=== PATIENT | female | born 1945 | race Two or more races ===

== ENCOUNTER 2018-04-29 07:49 | Day surgery (SDC) | payer OTHER ==
[~2018-04-29] VITALS: Ht 154.9 cm; Wt 77.7 kg
[~2018-04-29 07:49] MED LIST: AMIT25 PO; ASPI81EC PO; CIPR500 PO; CLON.5 PO; Cipro500 MG PO; DICL25ER; DICL75ER PO; ETOD200 PO; GABA100 PO; GEMF600 PO; GLIP10; Glucotrol5 MG PO; INS70/30I SC; INSLIS75I SC; INSULANPEN; LOSA25 PO; MECL25 PO; METF500; METF500 PO; METF500C PO; METO25 PO; METR500 PO; NAPR550 PO; OMEP20ER; OMEP20ER PO; PIOG45; PRAV20 PO; PROACE100 PO; PROM25 PO; PROM25S PR; RXHYDACE PO; RXNAPNA550 PO; RXPROM25S PR; SAXA2.5T; SIME80CH PO; TOUJEO SOL300 UNIT/1
[2018-04-29] MEDS ORDERED: CHOL10002 PO (08:29)
[2018-04-29] MEDS ORDERED: FISH OIL + D31 EACH PO (08:30)
== END 2018-04-29 10:00 | disposition home or self-care (01) ==
LOC: ORSCSDS 07:49
PROVIDERS: Internal Medicine Gastroenterology
PROC: 0DB68ZX Excision of Stomach, Via Natural or Artificial Opening Endoscopic, Diagnostic (ICD-10-PCS; principal; 2018-04-29 09:15)
PROC: 0DB58ZX Excision of Esophagus, Via Natural or Artificial Opening Endoscopic, Diagnostic (ICD-10-PCS; principal; 2018-04-29 09:15)
DX: K21.9 Gastro-esophageal reflux disease without esophagitis (principal); K31.89 Other diseases of stomach and duodenum; M79.7 Fibromyalgia; E11.9 Type 2 diabetes mellitus without complications; E78.00 Pure hypercholesterolemia, unspecified; I10 Essential (primary) hypertension; G47.33 Obstructive sleep apnea (adult) (pediatric); Z79.4 Long term (current) use of insulin; Z79.899 Other long term (current) drug therapy
CPT/HCPCS: 82947; 88305; 88341; 88342

== ENCOUNTER 2019-12-06 14:54 | Observation (INO) | payer OTHER ==
[~2019-12-06] VITALS: Ht 154.9 cm; Wt 78.0 kg
[~2019-12-06 14:54] MED LIST changes: +CHOL10002 PO; -DICL25ER; +DICL25ER SC; +FISH OIL + D31 EACH PO; -TOUJEO SOL300 UNIT/1; +TOUJEO SOL300 UNIT/1 SC
[2019-12-06 15:47] LABS: BASOPHILS ABSOLUTE AUTO 0.07 K/mm3 (0.00-0.23); BASOPHILS PERCENT AUTO 1 % (0-2); EOSINOPHILS ABSOLUTE AUTO 0.27 K/mm3 (0.00-0.68); EOSINOPHILS PERCENT AUTO 2 % (0-6); Hematocrit 34.5 % (33.0-51.0); Hemoglobin 10.8 g/dL (11.5-16.0); IMMATURE GRAN ABSOLUTE AUTO 0.06 K/mm3 (0.00-0.10); IMMATURE GRAN PERCENT AUTO 1 % (0-1); LYMPHOCYTES ABSOLUTE AUTO 2.95 K/mm3 (0.84-5.20); LYMPHOCYTES PERCENT AUTO 27 % (21-46); MONOCYTES ABSOLUTE AUTO 0.59 K/mm3 (0.16-1.47); MONOCYTES PERCENT AUTO 5 % (4-13); Mean Corpuscular HGB 24.9 pg (26.0-34.0); Mean Corpuscular HGB Conc 31.3 g/dL (31.5-36.5); Mean Corpuscular Volume 80 fL (80-100); Mean Platelet Volume 9.4 fL (9.1-12.4); NEUTROPHILS PERCENT AUTO 65 % (41-73); Platelet Count 351 K/mm3 (150-400); RDW Coefficient Variation 15.2 % (11.7-14.2); RDW Standard Deviation 44.1 fL (35.1-46.3); Red Blood Cell Count 4.33 M/mm3 (3.80-5.20); White Blood Cell Count 11.14 K/mm3 (4.00-11.30)
[2019-12-06 16:06] LABS: Alanine Aminotransfer (ALT/SGP 27 U/L (12-78); Albumin, Blood 3.4 g/dL (3.4-5.0); Albumin/Globulin Ratio 0.8 (0.8-1.8); Alk Phos 64 U/L (50-136); Anion Gap 7 mmol/L (6-16); Aspartate Aminotrans (AST/SGOT 20 U/L (12-37); Bilirubin, Total 0.2 mg/dL (0.1-1.0); Blood Urea Nitrogen 17 mg/dL (8-24); Bun/Creatinine Ratio 29.2 (12.0-20.0); CO2, Blood 26 mmol/L (21-32); Calcium, Blood 8.8 mg/dL (8.5-10.1); Chloride, Blood 106 mmol/L (98-108); Creatinine, Blood 0.58 mg/dL (0.40-1.00); Globulin, Blood 4.5 g/dL (2.2-4.0); Glomerular Filtration Rate >60 (60-); Glucose, Blood 146 mg/dL (70-99); Potassium, Blood 4.2 mmol/L (3.5-5.5); Sodium, Blood 139 mmol/L (136-145); Total Protein, Blood 7.9 g/dL (6.4-8.2)
[2019-12-06] MEDS ORDERED: OMEP20ER PO (19:48)
[2019-12-06] MEDS ORDERED: METFORMIN HCL500 M2 PO (19:48)
[2019-12-06] MEDS ORDERED: Klonopin0.5 MG PO (19:48)
[2019-12-06] MEDS ORDERED: LOSARTAN POTASS25 M2 PO (19:49)
[2019-12-06 20:44] LABS: Troponin I <0.015 ng/mL (0.000-0.040)
[2019-12-06] MEDS ORDERED: IBUP200 PO (22:18)
[2019-12-06] MEDS ORDERED: ACET325 PO (22:19)
[2019-12-06] MEDS ORDERED: [UNRECOGNIZED DRUG - REMARK] PO (22:20)
--- NOTE | 2019-12-06 22:21 | NUR ---
74 yr old female admitted to floor from the ed with dx of headache. ED RN reported pt having had headache and ear pain x 3 wks but recently it has increased so she came to the ED. Presents self as A/O x 4. Smiling, Oriented to call light use, agrees to use call light prior to getting out of bed. Neuro check done. PAULA. Bilat clerk of works and plantar/dorsi flexion equal. No noted facial droop. Call light in reach.
--- NOTE | 2019-12-07 02:25 | NUR ---
PT RESTING QUIETLY WITH NO NOTED INTERRUPTIONS THIS SHIFT SINCE HS. CONTINUING NEURO CHECKS, NO NOTED DEVIATION OF THIS WRITING. CALL LIGHT IN REACH.
--- NOTE | 2019-12-07 10:38 | NUR ---
NEURO ASSESSMENT WNL. PT DENIES DIZZINESS, VISION CHANGES. PT REPORTS HEADACHE, WILL MAKE DR. OTOOLE AWARE AND MED PER EMAR. DR. OTOOLE IN ROOM AT ABOUT 0930.
[2019-12-07] MEDS ORDERED: MELO7.5 PO (14:08)
[2019-12-07] MEDS ORDERED: PAMELOR PO (14:09)
--- NOTE | 2019-12-07 17:10 | NUR ---
DISCHARGE: PACKET PRINTED AND PT EDUCATED. SCRIPTS FAXED TO [facility]. PT LEFT UNIT VIA WHEELCHAIR AT 1711 WITH COMMISSARY PRODUCTION SUPERVISOR
== END 2019-12-07 17:28 | disposition home or self-care (01) ==
LOC: ER 14:54 → MEDS 14:55
PROVIDERS: Physician Assistant; ADMIT Internal Medicine
DX: G58.8 Other specified mononeuropathies (principal); G43.909 Migraine, unspecified, not intractable, without status migrainosus; F41.9 Anxiety disorder, unspecified; E11.9 Type 2 diabetes mellitus without complications; M19.90 Unspecified osteoarthritis, unspecified site; M31.6 Other giant cell arteritis; R07.9 Chest pain, unspecified; M79.7 Fibromyalgia; E78.5 Hyperlipidemia, unspecified; F51.04 Psychophysiologic insomnia; I10 Essential (primary) hypertension; K21.9 Gastro-esophageal reflux disease without esophagitis; G47.33 Obstructive sleep apnea (adult) (pediatric); Z79.4 Long term (current) use of insulin; Z79.899 Other long term (current) drug therapy
CPT/HCPCS: 70450; 80053; 82947; 84484; 85025; 85651; 86140; 93005; 93010; 96374; 96375; 99285-25; G0378; J1100; J1200; J1815; J2405; J2765; J7512

== ENCOUNTER 2019-12-09 12:07 | Emergency (ER) | payer OTHER ==
[~2019-12-09] VITALS: Ht 154.9 cm; Wt 78.0 kg
[~2019-12-09 12:07] MED LIST changes: +ACET325 PO; +IBUP200 PO; +Klonopin0.5 MG PO; +LOSARTAN POTASS25 M2 PO; +MELO7.5 PO; +METFORMIN HCL500 M2 PO; +PAMELOR PO; +[UNRECOGNIZED DRUG - REMARK] PO
[2019-12-09 12:47] LABS: BASOPHILS ABSOLUTE AUTO 0.07 K/mm3 (0.00-0.23); BASOPHILS PERCENT AUTO 1 % (0-2); EOSINOPHILS ABSOLUTE AUTO 0.36 K/mm3 (0.00-0.68); EOSINOPHILS PERCENT AUTO 3 % (0-6); Hematocrit 35.7 % (33.0-51.0); Hemoglobin 11.2 g/dL (11.5-16.0); IMMATURE GRAN ABSOLUTE AUTO 0.06 K/mm3 (0.00-0.10); IMMATURE GRAN PERCENT AUTO 1 % (0-1); LYMPHOCYTES ABSOLUTE AUTO 3.81 K/mm3 (0.84-5.20); LYMPHOCYTES PERCENT AUTO 32 % (21-46); MONOCYTES ABSOLUTE AUTO 0.69 K/mm3 (0.16-1.47); MONOCYTES PERCENT AUTO 6 % (4-13); Mean Corpuscular HGB 25.2 pg (26.0-34.0); Mean Corpuscular HGB Conc 31.4 g/dL (31.5-36.5); Mean Corpuscular Volume 80 fL (80-100); Mean Platelet Volume 9.3 fL (9.1-12.4); NEUTROPHILS ABSOLUTE AUTO 6.91 K/mm3 (1.96-9.15); NEUTROPHILS PERCENT AUTO 58 % (41-73); Platelet Count 361 K/mm3 (150-400); RDW Coefficient Variation 15.5 % (11.7-14.2); RDW Standard Deviation 44.8 fL (35.1-46.3); Red Blood Cell Count 4.45 M/mm3 (3.80-5.20)
[2019-12-09 13:15] LABS: Alanine Aminotransfer (ALT/SGP 31 U/L (12-78); Albumin, Blood 3.4 g/dL (3.4-5.0); Albumin/Globulin Ratio 0.8 (0.8-1.8); Alk Phos 63 U/L (50-136); Anion Gap 6 mmol/L (6-16); Aspartate Aminotrans (AST/SGOT 22 U/L (12-37); Bilirubin, Total 0.2 mg/dL (0.1-1.0); Blood Urea Nitrogen 21 mg/dL (8-24); Bun/Creatinine Ratio 31.9 (12.0-20.0); CO2, Blood 29 mmol/L (21-32); Calcium, Blood 9.2 mg/dL (8.5-10.1); Chloride, Blood 103 mmol/L (98-108); Creatinine, Blood 0.66 mg/dL (0.40-1.00); Globulin, Blood 4.1 g/dL (2.2-4.0); Glomerular Filtration Rate >60 (60-); Glucose, Blood 107 mg/dL (70-99); Sodium, Blood 138 mmol/L (136-145); Total Protein, Blood 7.5 g/dL (6.4-8.2); Troponin I <0.015 ng/mL (0.000-0.040)
[2019-12-09] MEDS ORDERED: Augmentin 875-1 EACH PO (15:34)
== END 2019-12-09 15:58 | disposition home or self-care (01) ==
LOC: ER 12:07
PROVIDERS: Physician Assistant
DX: H66.92 Otitis media, unspecified, left ear (principal); H72.92 Unspecified perforation of tympanic membrane, left ear; E11.9 Type 2 diabetes mellitus without complications; Z88.5 Allergy status to narcotic agent; Z88.6 Allergy status to analgesic agent; Z79.4 Long term (current) use of insulin; Z79.899 Other long term (current) drug therapy
CPT/HCPCS: 36415; 71046; 80053; 84484; 85025; 93005; 93010; 96374; 96375; 99284-25; J0780; J1200

== ENCOUNTER 2021-01-19 15:45 | Observation (INO) | payer OTHER ==
[~2021-01-19] VITALS: Ht 152.4 cm; Wt 79.9 kg
[~2021-01-19 15:45] MED LIST changes: +Augmentin 875-1 EACH PO; -Glucotrol5 MG PO; -Klonopin0.5 MG PO; -LOSARTAN POTASS25 M2 PO; -METFORMIN HCL500 M2 PO
[2021-01-19 16:25] LABS: BASOPHILS PERCENT AUTO 1 % (0-2); EOSINOPHILS ABSOLUTE AUTO 0.29 K/mm3 (0.00-0.68); EOSINOPHILS PERCENT AUTO 2 % (0-6); Hematocrit 35.4 % (33.0-51.0); Hemoglobin 10.9 g/dL (11.5-16.0); IMMATURE GRAN ABSOLUTE AUTO 0.11 K/mm3 (0.00-0.10); IMMATURE GRAN PERCENT AUTO 1 % (0-1); LYMPHOCYTES ABSOLUTE AUTO 3.93 K/mm3 (0.84-5.20); LYMPHOCYTES PERCENT AUTO 22 % (21-46); MONOCYTES ABSOLUTE AUTO 0.65 K/mm3 (0.16-1.47); MONOCYTES PERCENT AUTO 4 % (4-13); Mean Corpuscular HGB 24.5 pg (26.0-34.0); Mean Corpuscular HGB Conc 30.8 g/dL (31.5-36.5); Mean Corpuscular Volume 80 fL (80-100); Mean Platelet Volume 9.3 fL (9.1-12.4); NEUTROPHILS ABSOLUTE AUTO 12.86 K/mm3 (1.96-9.15); NEUTROPHILS PERCENT AUTO 72 % (41-73); Platelet Count 330 K/mm3 (150-400); RDW Coefficient Variation 15.8 % (11.7-14.2); RDW Standard Deviation 44.9 fL (35.1-46.3); Red Blood Cell Count 4.45 M/mm3 (3.80-5.20); White Blood Cell Count 17.94 K/mm3 (4.00-11.30)
[2021-01-19 16:36] LABS: Alanine Aminotransfer (ALT/SGP 27 U/L (12-78); Albumin, Blood 3.2 g/dL (3.4-5.0); Albumin/Globulin Ratio 0.8 (0.8-1.8); Alk Phos 63 U/L (50-136); Anion Gap 13 mmol/L (6-16); Aspartate Aminotrans (AST/SGOT 18 U/L (12-37); Bilirubin, Total 0.3 mg/dL (0.1-1.0); Blood Urea Nitrogen 22 mg/dL (8-24); Bun/Creatinine Ratio 33.1 (12.0-20.0); CO2, Blood 22 mmol/L (21-32); Calcium, Blood 8.9 mg/dL (8.5-10.1); Chloride, Blood 106 mmol/L (98-108); Creatinine, Blood 0.66 mg/dL (0.40-1.00); Globulin, Blood 4.2 g/dL (2.2-4.0); Glomerular Filtration Rate >60 (60-); Glucose, Blood 165 mg/dL (70-99); Potassium, Blood 3.4 mmol/L (3.5-5.5); Sodium, Blood 141 mmol/L (136-145); Total Protein, Blood 7.4 g/dL (6.4-8.2)
[2021-01-19] MEDS ORDERED: TRESIBA FL100 UNIT/2 SC (17:51)
[2021-01-19] MEDS ORDERED: DICL75ER PO (17:52)
[2021-01-19] MEDS ORDERED: Pravachol40 MG PO (17:53)
[2021-01-19] MEDS ORDERED: OMEP20ER PO (17:53)
[2021-01-19] MEDS ORDERED: METFORMIN HCL500 M2 PO (17:53)
[2021-01-19] MEDS ORDERED: LOSARTAN POTASS25 M2 PO (17:53)
[2021-01-19] MEDS ORDERED: Glucotrol5 MG PO (17:54)
[2021-01-19] MEDS ORDERED: Klonopin0.5 MG PO (17:55)
[2021-01-20] MEDS ORDERED: PREG100 PO (00:23)
--- NOTE | 2021-01-20 03:08 | NUR ---
TRANSFER NOTE PATIENT TRANSFERED UP TO NEW ROOM VIA WHEELCHAIR BY MARITIME PILOT. ALL BELONGING GATHERED AND SENT WITH PATIENT. PATIENT WEARING EAR PIECE AND MICROPHONE UPON TRANSFER.
[2021-01-20 04:18] LABS: Anion Gap 8 mmol/L (6-16); Blood Urea Nitrogen 23 mg/dL (8-24); Bun/Creatinine Ratio 34.2 (12.0-20.0); CO2, Blood 27 mmol/L (21-32); Calcium, Blood 9.1 mg/dL (8.5-10.1); Chloride, Blood 104 mmol/L (98-108); Creatinine, Blood 0.67 mg/dL (0.40-1.00); Glomerular Filtration Rate >60 (60-); Glucose, Blood 301 mg/dL (70-99); Sodium, Blood 139 mmol/L (136-145)
--- NOTE | 2021-01-20 07:28 | NUR ---
ADMIT NOTE/SHIFT SUMMARY PATIENT ADMITTED EARLIER THIS SHIFT AND WAS ABLE TO TRANSFER SELF FROM THE GURNEY TO TO THE BED WITH SBA. PATIENT PLEASENT AND COOPERATIVE AND DENIES THE NEED FOR AN INTERPETER. PATIENT APPEARED TO NAP ON AND OFF WITH COMPLAINTS OF A HEADACHE THAT WAS NOT GETTING BETTER. PATIENT REQUESTING HOME LYRICA AND SOMETHING FOR A SLIGHT UPSET STOMACH, DR JIMÉNEZ NOTIFIED AND ORDERS RECEIVED. PATIENT CURRENTLY APPEARS TO BE SLEEPING WELL. REPORT GIVEN TO ONCOMING RN.
--- NOTE | 2021-01-20 07:48 | NUR ---
ASSUMED CARE FROM JODEE RN PT WAS ASLEEP DURING REPORT. JODEE RN REPORTS THAT THE PT HAS BEEN ABLE TO SWALLOW AND TAKE ORAL MEDICATION WITHOUT ANY ISSUE AND THE SWELLING IN HER MOUTH HAS GREATLY DECREASED IF NOT IS COMPLETELY GONE. PT IS SLEEPING AT THIS TIME. DUE TO HER REPORT OF IMPROVED INTAKE, SHE HAS BEEN ADVANCED TO ADA DIET FOR LUNCH AND SWITCHED TO ACHS CBG CHECKS
[2021-01-20] MEDS ORDERED: MIRALAX17 GM PO (13:11)
[2021-01-20] MEDS ORDERED: EPIPEN0.3 MG/0.3 IM (13:12)
[2021-01-20] MEDS ORDERED: Deltasone 10 mg10 MG PO (13:14)
--- NOTE | 2021-01-20 18:13 | NUR ---
DISCHARGE PT WAS DISCHARGED THIS EVENING AT APPROXIMATELY 1740. PT LEFT WITH ALL PERSONAL BELONGINGS. PT REPORTED ORAL SWELLING TO BE RESOLVED. PT DENIED ANY PAIN PRIOR TO LEAVING. VS STABLE, PT ON RA. PT LEFT THE FLOOR VIA WHEELCHAIR WITH SLUBBER FRAME CHANGER TO FAMILY MEMBER TO RETURN HOME.
== END 2021-01-20 17:44 | disposition home or self-care (01) ==
LOC: ER 15:45 → PCU 15:46 → ERHOLD 15:46 → PCU 15:46 → ERHOLD 15:46 → ER 15:46 → PCU 23:40 → ERHOLD 23:40 → PCU 01-20 16:12
PROVIDERS: Family Medicine; Physician Assistant; ADMIT Hospitalist
DX: T80.52XA Anaphylactic reaction due to vaccination, initial encounter (principal); T50.Z95A Adverse effect of other vaccines and biological substances, initial encounter; I10 Essential (primary) hypertension; E11.9 Type 2 diabetes mellitus without complications; G47.33 Obstructive sleep apnea (adult) (pediatric); Y84.8 Other medical procedures as the cause of abnormal reaction of the patient, or of later complication, without mention of misadventure at the time of the procedure; Z88.6 Allergy status to analgesic agent; Z88.5 Allergy status to narcotic agent; Z79.4 Long term (current) use of insulin
CPT/HCPCS: 36415; 71045; 80048; 80053; 82947; 85025; 93005; 93010; 99285-25; A9270; G0378; J1650; J1815; J2405; J2930

== ENCOUNTER → 2021-06-12 | Outpatient (CLI) | payer OTHER ==
[~2021-06-12] MED LIST changes: +Deltasone 10 mg10 MG PO; +EPIPEN0.3 MG/0.3 IM; +Glucotrol5 MG PO; +Klonopin0.5 MG PO; +LOSARTAN POTASS25 M2 PO; +METFORMIN HCL500 M2 PO; +MIRALAX17 GM PO; +PREG100 PO; +Pravachol40 MG PO; +TRESIBA FL100 UNIT/2 SC
[2021-06-14 15:41] LABS: CORONAVIRUS (COVID19) CSH-NRL Negative (Negative)
== END | disposition home or self-care (01) ==
LOC: LAB SHORT 16:18 → LAB EV 16:18
PROVIDERS: Physician Assistant
DX: Z20.822 Contact with and (suspected) exposure to COVID-19 (principal)
CPT/HCPCS: U0003

== ENCOUNTER 2021-06-17 23:42 | Inpatient (IN) | payer OTHER ==
[~2021-06-17] VITALS: Ht 154.9 cm; Wt 80.7 kg
[2021-06-18 00:30] LABS: BASOPHILS ABSOLUTE AUTO 0.02 K/mm3 (0.00-0.23); BASOPHILS PERCENT AUTO 0 % (0-2); EOSINOPHILS PERCENT AUTO 0 % (0-6); Hematocrit 33.1 % (33.0-51.0); Hemoglobin 10.7 g/dL (11.5-16.0); IMMATURE GRAN ABSOLUTE AUTO 0.05 K/mm3 (0.00-0.10); IMMATURE GRAN PERCENT AUTO 1 % (0-1); LYMPHOCYTES ABSOLUTE AUTO 0.69 K/mm3 (0.84-5.20); LYMPHOCYTES PERCENT AUTO 7 % (21-46); MONOCYTES ABSOLUTE AUTO 0.41 K/mm3 (0.16-1.47); MONOCYTES PERCENT AUTO 4 % (4-13); Mean Corpuscular HGB 24.7 pg (26.0-34.0); Mean Corpuscular HGB Conc 32.3 g/dL (31.5-36.5); Mean Corpuscular Volume 76 fL (80-100); Mean Platelet Volume 9.1 fL (9.1-12.4); NEUTROPHILS ABSOLUTE AUTO 8.61 K/mm3 (1.96-9.15); NEUTROPHILS PERCENT AUTO 88 % (41-73); Platelet Count 291 K/mm3 (150-400); RDW Standard Deviation 44.3 fL (35.1-46.3); Red Blood Cell Count 4.34 M/mm3 (3.80-5.20); White Blood Cell Count 9.78 K/mm3 (4.00-11.30)
[2021-06-18 01:02] LABS: Alanine Aminotransfer (ALT/SGP 35 U/L (12-78); Albumin, Blood 3.2 g/dL (3.4-5.0); Albumin/Globulin Ratio 0.8 (0.8-1.8); Alk Phos 58 U/L (50-136); Anion Gap 6 mmol/L (6-16); Aspartate Aminotrans (AST/SGOT 72 U/L (12-37); Bilirubin, Total 0.2 mg/dL (0.1-1.0); Blood Urea Nitrogen 20 mg/dL (8-24); Bun/Creatinine Ratio 24.6 (12.0-20.0); CO2, Blood 28 mmol/L (21-32); Calcium, Blood 8.6 mg/dL (8.5-10.1); Chloride, Blood 100 mmol/L (98-108); Creatinine, Blood 0.81 mg/dL (0.40-1.00); Glomerular Filtration Rate >60 (60-); Glucose, Blood 241 mg/dL (70-99); Sodium, Blood 134 mmol/L (136-145); Total Protein, Blood 7.2 g/dL (6.4-8.2)
[2021-06-18 01:06] LABS: CPK Creatine Kinase 3803 U/L (26-193)
[2021-06-18 01:25] LABS: Creatine Kinase MB Index 0.4 (0.0-4.0)
[2021-06-18 03:14] LABS: SARS-Cov-2 (COVID-19) PCR, MMC POSITIVE (NEGATIVE)
--- NOTE | 2021-06-18 05:53 | NUR ---
ADMIT NOTE PT ARRIVED TO PCU FROM ED VIA ED STRETCHER AT APPROX 0345. PT WAS SLID BY 3 STAFF FROM ED STRETCHER TO PCU BED. PT A&OX4. ELIM IRA, STATES HEARING AIDES HURT HER EARS. SP02>92% ON 2L NC. TELEMETRY READS NSR, HR 75. PT ARRIVED WITH PURWIK IN PLACE. HEPARIN GTT INFUSING. DURING ASSESSMENT, PT STARTLED, GRABBED L SIDE OF CHEST. PT STATED SHE HAD 2 "STAB STAB" AND NOW ACHE. CALL PLACED TO MD MIGUEL. MD MIGUEL W/ ORDERS FOR NITRO SUBLINGUAL. GIVEN PER EMAR X1 W/ SUCCESSFUL RELIEF OF CP. ORIENTED TO ROOM, CALL LIGHT. BED ALARM ON. CALL LIGHT IN REACH. WILL GIVE REPORT TO ONCOMING NURSE.
[2021-06-18 09:35] LABS: Ferritin, Serum 141 ng/mL (8-252); Percent Saturation 4.8 % (15.0-50.0); Thyroid Stimulating Hormone 0.525 uIU/mL (0.360-4.800); Total Iron Binding Capacity 330 ug/dL (250-450)
[2021-06-18 09:36] LABS: Cholesterol 107 mg/dL (50-200); Iron Serum 16 ug/dL (50-170); Triglycerides 78 mg/dL (30-160)
--- NOTE | 2021-06-18 10:03 | NUR ---
Echocardiogram completed.
--- NOTE | 2021-06-18 12:00 | NUR ---
Admit: 06/18/21 Discharge: TBD Dx. Fall/Hip pain, NSTEMI, COVID-19 positive PCP: Chris LOPEZ CC: [facility] Physician: Karthikeyan Sam MD. Contact/caregiver: Shraddha Beaulieu, Family Member, Ness Beaulieu, Family Member, [place] or [place] Benefits: No Medicaid: Yes Secondary
--- NOTE | 2021-06-18 18:42 | NUR ---
PT HAD ECHOCARDIOGRAM ASSESSED; NO HEPARIN RATE TITRATION NEEDED PER PHARMACY; PT HAD CARDIAC STRESS TEST INJECTION AT 1330, AND 16G FAT GIVEN AT 1352, IN CARDIAC TEST FROM 1504 TO 1548 VIA STRETCHER ACCOMPANIED BY KNITTED GOODS SHAPER, PT DENIED PAIN AT EACH ASSESSMENT, PT ASSISTED TO BSC 4X, PT TITRATED DOWN TO 1LNC, RN TRANSLATED AT BEDSIDE FOR PHYSICIAN AND BULL GANG SUPERVISOR VISITS, PT'S FAMILY MEMBERS UPDATED VIA PHONE IN SEVERAL PHONE CALLS THROUGHOUT SHIFT, PT'S GRANDDAUGHTER ASKED TO SPEAK TO PT VIA PHONE AT BEDSIDE, PT REFUSED, RN ASKED PT IF IT WAS OK, PT VERBALLY CONSENTED WITH RN EDUCATION, PT DENIES ADDITIONAL CONCERNS AT THIS TIME
[2021-06-19 04:22] LABS: BASOPHILS ABSOLUTE AUTO 0.02 K/mm3 (0.00-0.23); BASOPHILS PERCENT AUTO 0 % (0-2); EOSINOPHILS PERCENT AUTO 0 % (0-6); Hematocrit 32.2 % (33.0-51.0); Hemoglobin 10.2 g/dL (11.5-16.0); IMMATURE GRAN ABSOLUTE AUTO 0.03 K/mm3 (0.00-0.10); IMMATURE GRAN PERCENT AUTO 0 % (0-1); LYMPHOCYTES ABSOLUTE AUTO 1.52 K/mm3 (0.84-5.20); LYMPHOCYTES PERCENT AUTO 20 % (21-46); MONOCYTES ABSOLUTE AUTO 0.23 K/mm3 (0.16-1.47); MONOCYTES PERCENT AUTO 3 % (4-13); Mean Corpuscular HGB 24.9 pg (26.0-34.0); Mean Corpuscular HGB Conc 31.7 g/dL (31.5-36.5); Mean Corpuscular Volume 79 fL (80-100); Mean Platelet Volume 9.4 fL (9.1-12.4); NEUTROPHILS ABSOLUTE AUTO 5.83 K/mm3 (1.96-9.15); NEUTROPHILS PERCENT AUTO 76 % (41-73); Platelet Count 251 K/mm3 (150-400); RDW Coefficient Variation 16.5 % (11.7-14.2); RDW Standard Deviation 47.7 fL (35.1-46.3); Red Blood Cell Count 4.09 M/mm3 (3.80-5.20); White Blood Cell Count 7.63 K/mm3 (4.00-11.30)
[2021-06-19 04:38] LABS: D-Dimer, Quantitative 1.11 mg/L FEU (0.00-0.52)
[2021-06-19 04:49] LABS: Alanine Aminotransfer (ALT/SGP 116 U/L (12-78); Albumin, Blood 2.7 g/dL (3.4-5.0); Albumin/Globulin Ratio 0.7 (0.8-1.8); Alk Phos 46 U/L (50-136); Anion Gap 6 mmol/L (6-16); Aspartate Aminotrans (AST/SGOT 339 U/L (12-37); Bilirubin, Total 0.3 mg/dL (0.1-1.0); Blood Urea Nitrogen 16 mg/dL (8-24); Bun/Creatinine Ratio 22.9 (12.0-20.0); CO2, Blood 27 mmol/L (21-32); Calcium, Blood 7.6 mg/dL (8.5-10.1); Chloride, Blood 100 mmol/L (98-108); Ferritin, Serum 247 ng/mL (8-252); Globulin, Blood 3.7 g/dL (2.2-4.0); Glomerular Filtration Rate >60 (60-); Glucose, Blood 127 mg/dL (70-99); Iron Serum 14 ug/dL (50-170); Lactate Dehydrogenase (Ld),Bld 463 U/L (100-240); Magnesium, Blood 2.1 mg/dL (1.6-2.4); Percent Saturation 3.8 % (15.0-50.0); Sodium, Blood 133 mmol/L (136-145); Total Iron Binding Capacity 367 ug/dL (250-450); Total Protein, Blood 6.4 g/dL (6.4-8.2)
--- NOTE | 2021-06-19 05:51 | NUR ---
SHIFT SUMMARY PT IS ALERT AND ORIENTED BUT VERY HARD OF HEARING. THERE HAVE BEEN NO ACUTE CHANGES. VITALS ARE STABLE AND ON 1L NC WITH SATS ABOVE 92%. PT DENIES CHEST PAIN OR SOB. HAS BEEN NPO SINCE MIDNIGHT. PT IS VERY WEAK SHE HAS BEEN A TWO ASSIST. HEPARIN RUNNING PER PHARMACY ORDER. CALL LIGHT IS WITHIN REACH.
--- NOTE | 2021-06-19 18:45 | NUR ---
SHIFT SUMMARY PT TRANSFERRED TO UNIT AT 1335 THIS SHIFT FROM PCU. RECEIVED REPORT FROM CAREY ROYAL. PT AAOX4, ABLE TO MAKE NEEDS KNOWN, [place], PLEASANT AND COOPERATIVE TO CARE. PT ON BEDREST ORDERED. FAIR BED MOBILITY. CONTINENT OF BLADDER. AWAITING STOOL SAMPLE FOR FECAL OCCULT TESTING. NO C/O PAIN. PT REMAINS ON 1LPM O2 VIA NC, SATTING 91-94%. PT CONTINUES ON HEPARIN DRIP ORDERED. BED AT LOWEST POSITION. CALL LIGHT WITHIN REACH.
--- NOTE | 2021-06-19 19:45 | NUR ---
PT PRESENTS MORE WEAK AND LETHARGIC THAN OBSERVED ON 06/18 PER THIS RN'S ASSESSMENT; HEPARIN RATE UNCHANGED PER PHARMACY; PT HAD CARDIAC STRESS TEST FINAL COMPONENTS AND WAS GIVEN COFFEE AND HALF AND HALF AT [employer] AFFIXER'S REQUEST AT 1058; PT IN PHYSICAL SCAN FROM [id number]; PT HAD MILD FEVER AT 100.1 AT 0800 AND WAS GIVEN PO ACETAMINOPHEN; NO CBG'S REQUIRED CORRECTION; PT CONSISTENTLY ON 1LNC; REPORT GIVEN TO CAREY LUNA AT 1256 VIA PHONE; TELEMETRY DISCONTINUED; PT LEFT UNIT AT 1315 ACCOMPANIED BY PERSONAL EFFECTS, RN, RN CHOCOLATIER, 1LNC O2, NO TELEMETRY MONITORING, AND HEPARIN INFUSION; PT ASSISTED TO BEDPAN; PT DENIES ADDITIONAL CONCERNS AT THIS TIME
--- NOTE | 2021-06-20 01:58 | NUR ---
0025 ELEVATED TEMP ELEVATED TEMP OF 100.1F ORALLY. HEAT TURNED DOWN IN ROOM, EXTRA BLANKET REMOVED. FLUIDS OFFERED. 0142 TEMPERATURE ELEVATED TO 102.9 F ORALLY. PT STATES SHE FEELS "COLD". ICE PACKS APPLIED TO BILATERAL AXILLA, COOL WASHCLOTH APPLIED TO FOREHEAD. TYLENOL GIVEN. FLUIDS OFFERED. BED ALARM ON, CALL LIGHT WITHIN REACH, WILL CONTINUE TO MONITOR.
[2021-06-20 04:36] LABS: BASOPHILS ABSOLUTE AUTO 0.02 K/mm3 (0.00-0.23); BASOPHILS PERCENT AUTO 0 % (0-2); EOSINOPHILS PERCENT AUTO 0 % (0-6); Hematocrit 30.7 % (33.0-51.0); Hemoglobin 9.7 g/dL (11.5-16.0); IMMATURE GRAN ABSOLUTE AUTO 0.02 K/mm3 (0.00-0.10); IMMATURE GRAN PERCENT AUTO 0 % (0-1); LYMPHOCYTES ABSOLUTE AUTO 1.11 K/mm3 (0.84-5.20); LYMPHOCYTES PERCENT AUTO 13 % (21-46); MONOCYTES ABSOLUTE AUTO 0.18 K/mm3 (0.16-1.47); MONOCYTES PERCENT AUTO 2 % (4-13); Mean Corpuscular HGB 24.9 pg (26.0-34.0); Mean Corpuscular HGB Conc 31.6 g/dL (31.5-36.5); Mean Corpuscular Volume 79 fL (80-100); NEUTROPHILS ABSOLUTE AUTO 6.95 K/mm3 (1.96-9.15); NEUTROPHILS PERCENT AUTO 84 % (41-73); Platelet Count 231 K/mm3 (150-400); RDW Coefficient Variation 16.6 % (11.7-14.2); RDW Standard Deviation 47.9 fL (35.1-46.3); Red Blood Cell Count 3.89 M/mm3 (3.80-5.20); White Blood Cell Count 8.28 K/mm3 (4.00-11.30)
[2021-06-20 04:54] LABS: Alanine Aminotransfer (ALT/SGP 99 U/L (12-78); Albumin, Blood 2.5 g/dL (3.4-5.0); Albumin/Globulin Ratio 0.6 (0.8-1.8); Alk Phos 44 U/L (50-136); Anion Gap 7 mmol/L (6-16); Aspartate Aminotrans (AST/SGOT 296 U/L (12-37); Bilirubin, Total 0.4 mg/dL (0.1-1.0); Blood Urea Nitrogen 17 mg/dL (8-24); Bun/Creatinine Ratio 22.5 (12.0-20.0); CO2, Blood 26 mmol/L (21-32); Calcium, Blood 7.8 mg/dL (8.5-10.1); Chloride, Blood 101 mmol/L (98-108); Creatinine, Blood 0.75 mg/dL (0.40-1.00); Globulin, Blood 3.9 g/dL (2.2-4.0); Glomerular Filtration Rate >60 (60-); Glucose, Blood 93 mg/dL (70-99); Potassium, Blood 3.8 mmol/L (3.5-5.5); Sodium, Blood 134 mmol/L (136-145); Total Protein, Blood 6.4 g/dL (6.4-8.2)
--- NOTE | 2021-06-20 07:17 | NUR ---
TRANSCRIPTION TYPIST SUMMARY PT A/O X4. TEMP HAS COME DOWN TO 99.7 THIS AM. DENIES CHEST PAIN, NAUSEA. CONTINUES TO BE ON BEDREST. INCONT/CONTIENT, ATTENDS IN PLACE. CONTINUES TO BE ON 2L O2 VIA NC SATTING IN THE LOW 90'S. ABLE TO MAKE NEEDS KNOWN. CALL LIGHT WITHIN REACH, BED ALARM ON, WILL REPORT TO ONCOMING SHIFT
--- NOTE | 2021-06-20 18:29 | NUR ---
1600-PT HAD BEEN SLEEPY ALL AFTERNOON AND SLEPT THROUGH LUNCH. HAD LYRICA FOR CHRONIC BACK PAIN RELEIF AND WAS EASILY AROUSABLE BUT ASKED TO SLEEP. WHEN AWOKEN FOR VS, SATS FOUND TO BE 82% AT 3L, INCREASED TO 5 AND INCRESASE TO HIGH FLOW 15, SATS MAX 88%, CALLED JUWAN CORNELL AND SHE RELAYED INFOR TO DR PALACIOS. PLAN FOR PT TX TO PCU. CALLED SAULO PRICE, ENEDE UP USING AIRVO 76%, 60L FLOW AND SAT MAX 94% BY 1745. CALL TO PCU 6 AT 1830 REPORTED TO DOUGLAS. PT REMAINS A/O, GOOD MENTATION. CALL TO GRANDDAUGHTER SHANE TO INFORM OF TX.
--- NOTE | 2021-06-20 19:25 | NUR ---
TRANSFER NOTE RECIEVED REPORT FROM CAREY CASTANEDA ON MEDICAL. PT TO ROOM VIA BED AT APPROX 1845. 4 PERSON TRANSFER ASSIT TO BED. SPO2 93-95% ON 15L VIA NONREBREATHER; RT NOTIFIED TO SET UP AIRVO. VSS. PT TURNED ON SIDE, EDUCATED ON PRONING, PT AGREEABLE TO STAY ON SIDE. HEPARIN INFUSING WHEN PT TO ROOM, NOTED D/C ORDERS, STOPPED AND NOTIFIED DR ACUÑA, NO NEW ORDERS. REPORT GIVEN TO ONCOMING RN.
[2021-06-21 04:08] LABS: BASOPHILS PERCENT AUTO 0 % (0-2); EOSINOPHILS PERCENT AUTO 0 % (0-6); Hematocrit 30.2 % (33.0-51.0); Hemoglobin 9.9 g/dL (11.5-16.0); IMMATURE GRAN ABSOLUTE AUTO 0.05 K/mm3 (0.00-0.10); IMMATURE GRAN PERCENT AUTO 1 % (0-1); LYMPHOCYTES ABSOLUTE AUTO 1.11 K/mm3 (0.84-5.20); LYMPHOCYTES PERCENT AUTO 11 % (21-46); MONOCYTES ABSOLUTE AUTO 0.18 K/mm3 (0.16-1.47); MONOCYTES PERCENT AUTO 2 % (4-13); Mean Corpuscular HGB 25.3 pg (26.0-34.0); Mean Corpuscular HGB Conc 32.8 g/dL (31.5-36.5); Mean Corpuscular Volume 77 fL (80-100); Mean Platelet Volume 8.9 fL (9.1-12.4); NEUTROPHILS ABSOLUTE AUTO 8.46 K/mm3 (1.96-9.15); NEUTROPHILS PERCENT AUTO 86 % (41-73); Platelet Count 255 K/mm3 (150-400); RDW Coefficient Variation 16.5 % (11.7-14.2); RDW Standard Deviation 46.6 fL (35.1-46.3); Red Blood Cell Count 3.91 M/mm3 (3.80-5.20)
[2021-06-21 04:31] LABS: Alanine Aminotransfer (ALT/SGP 97 U/L (12-78); Albumin, Blood 2.4 g/dL (3.4-5.0); Albumin/Globulin Ratio 0.6 (0.8-1.8); Alk Phos 51 U/L (50-136); Anion Gap 5 mmol/L (6-16); Aspartate Aminotrans (AST/SGOT 266 U/L (12-37); Bilirubin, Total 0.5 mg/dL (0.1-1.0); Blood Urea Nitrogen 18 mg/dL (8-24); Bun/Creatinine Ratio 24.4 (12.0-20.0); CO2, Blood 28 mmol/L (21-32); Chloride, Blood 101 mmol/L (98-108); Creatinine, Blood 0.74 mg/dL (0.40-1.00); Globulin, Blood 4.1 g/dL (2.2-4.0); Glomerular Filtration Rate >60 (60-); Glucose, Blood 154 mg/dL (70-99); Magnesium, Blood 1.6 mg/dL (1.6-2.4); Phosphorus, Blood 1.6 mg/dL (2.5-4.9); Sodium, Blood 134 mmol/L (136-145); Total Protein, Blood 6.5 g/dL (6.4-8.2)
--- NOTE | 2021-06-21 06:25 | NUR ---
SHIFT SUMMARY ASUMED CARE OF PT AT 1900. PT IS A/OX4. HEART SOUNDS REGULAR. LUNG SOUNDS ARE DIMINISHED WITH CRACKLES AT THE BASES. PT WAS ON WIRVO T/O THE NIGHT, 45L 80%. SATURATIONS REMAINS BETWEEN 88%-93%. PT WAS A 1P SBA TO BSC. URINE CLEAR AND YELLOW. PT C/O HEADACHE, MEDICATED PER EMAR. CALL LIGHT IN REACH, BED IN LOWEST POSITON.
[2021-06-21 13:37] LABS: Hematocrit 30.5 % (33.0-51.0); Hemoglobin 9.8 g/dL (11.5-16.0)
--- NOTE | 2021-06-21 18:32 | NUR ---
[facility] Comofort Care visit for support during d/c of bipap tx per pt and family choice. Pt's RR 48-52 initally, 40-44/min after 5 min and administration of ativan and Haldol to help with anxity and work of breathing. Pt became sleepy and more relaxed after 10 minutes. RR 36/min. Sterling and Gdau at bedside. Pt was able to talk with other family members on the phone earlier in the afternoon. Plan to remain at bedside until bipap removed to assist with s/s management and support. Shared in reminiscing and life review with sterling and gdau.
--- NOTE | 2021-06-21 18:47 | NUR ---
SHIFT SUMMARY PT TRANSITIONED TO COMFORT CARE THIS SHIFT. THIS AM PT BEGAN TO C/O CP AND NAUSEA AND BEGAN COUGHING. SHE THEN STARTED TO COUGH UP OUMOU RED BLOOD. SHE THEN DESATTED DOWN INTO THE LOW 70'S DESPITE BEING MAXED OUT ON AIRVO AND REBREATHER. PT PLANNED TO TRANSFER TO ICU BUT THEN WAS MADE DNR AND THEN COMFORT CARE. PT FAMILY IS AT THE BEDSIDE AND THE PLAN IS TO TRANSITION OFF BIPAP. WILL REPORT TO ONCOMING RN.
--- NOTE | 2021-06-21 18:54 | NUR ---
UPDATE: Pt comfort care status. daughter and granddaughter in room. Pt medicated with haldal, morphine and ativan IV. Will remove bipap when daughter and grand daughter ready. Pt appears very comfortable. Will treat for comfort.
--- NOTE | 2021-06-21 19:15 | NUR ---
Pt and family have elected to pursue comfort care. Spoke with Dr Sam and discussed case. merchandise supervisor Gabe places comfort care order. Family visits with Pt alone. Family makes staff aware that Pt is ready to withdraw care. CAREY Molina premedicates Pt with comfort medications. This RN and PC RN Jasmyn assits with comfort and family support. BIPAP D/C and Pt is imminent. Pt appears comfortable and peaceful. Visit ended to allow family time alone with Pt. Palliative Care will remain available.
--- NOTE | 2021-06-21 19:36 | NUR ---
COMFORT CARE UPDATE PT ACTIVELY PASSING AT THIS TIME DURING CHANGE OF SHIFT REPORT. CARE TEAM IN ROOM WITH PT AT THIS TIME. PALLATIVE CARE, HOSPICE AND DOCTOR OF OSTEOPATHY NABILA CHRISTENSEN. PT BEING MEDICATED FOR COMFORT AT THIS TIME.
--- NOTE | 2021-06-21 20:00 | NUR ---
PT PASSED AT 1938, CALLED AND NOTIFIED, FINAL DISCHARGE COMPLETE. WAITING FOR MORTURARY AT THIS TIME.
== END 2021-06-21 21:36 | DRG 177 ==
LOC: ER 23:42 → PCU 23:43 → MEDS 06-19 13:07 → PCU 06-20 18:37
PROVIDERS: Emergency Medicine; Hospitalist; Internal Medicine Cardiovascular Disease; Internal Medicine Critical Care Medicine; ADMIT Internal Medicine
PROC: 8E0ZXY6 Isolation (ICD-10-PCS; principal; 2021-06-18)
PROC: 3E0333Z Introduction of Anti-inflammatory into Peripheral Vein, Percutaneous Approach (ICD-10-PCS; 2021-06-19)
PROC: 5A0935A Assistance with Respiratory Ventilation, Less than 24 Consecutive Hours, High Flow/Velocity Cannula (ICD-10-PCS; 2021-06-19)
PROC: 5A09357 Assistance with Respiratory Ventilation, Less than 24 Consecutive Hours, Continuous Positive Airway Pressure (ICD-10-PCS; 2021-06-20)
DX: U07.1 COVID-19 (principal); J12.82 Pneumonia due to coronavirus disease 2019; J96.01 Acute respiratory failure with hypoxia; B17.8 Other specified acute viral hepatitis; R04.2 Hemoptysis; B33.22 Viral myocarditis; G47.33 Obstructive sleep apnea (adult) (pediatric); Z51.5 Encounter for palliative care; E11.9 Type 2 diabetes mellitus without complications; Z66 Do not resuscitate; F41.9 Anxiety disorder, unspecified; M54.2 Cervicalgia; H91.90 Unspecified hearing loss, unspecified ear; Z90.710 Acquired absence of both cervix and uterus; Z90.721 Acquired absence of ovaries, unilateral; Z98.890 Other specified postprocedural states; Z88.6 Allergy status to analgesic agent; Z88.8 Allergy status to other drugs, medicaments and biological substances; Z79.899 Other long term (current) drug therapy; I25.10 Atherosclerotic heart disease of native coronary artery without angina pectoris; G89.29 Other chronic pain; R74.01 Elevation of levels of liver transaminase levels; D50.9 Iron deficiency anemia, unspecified; E66.01 Morbid (severe) obesity due to excess calories; Z68.34 Body mass index [BMI] 34.0-34.9, adult; Z79.4 Long term (current) use of insulin; S70.02XA Contusion of left hip, initial encounter; W06.XXXA Fall from bed, initial encounter; Y92.009 Unspecified place in unspecified non-institutional (private) residence as the place of occurrence of the external cause; K76.0 Fatty (change of) liver, not elsewhere classified; I11.9 Hypertensive heart disease without heart failure
CPT/HCPCS: 36415; 71045; 73502; 76705; 78452; 80053; 82465; 82550; 82553; 82728; 82947; 83540; 83550; 83615; 83735; 83880; 84100; 84443; 84478; 84484; 85014; 85018; 85025; 85379; 85651; 85730; 86060; 86140; 86141; 87040; 93005; 93010; 93017; 93306; 94660; 94762; 96374; 99285-25; A9270; A9500; G0378; J0706; J1100; J1630; J1644; J2060; J2270; J2405; J2785; J2916; J7030; J7040; J7060; U0004